=== PATIENT | female | born 1990 | race Caucasian/White ===

== ENCOUNTER → 2017-04-02 | Outpatient (REF) | payer BC | LOC: M LAB REF 13:20 | PROVIDERS: ATTEND Obstetrics & Gynecology | DX: Z11.3 Encounter for screening for infections with a predominantly sexual mode of transmission (principal) ==

== ENCOUNTER → 2018-01-09 | Outpatient (CLI) | payer BC ==
[2018-01-09 17:18] LABS: BASO % 0.4 % (0.0-1.0); EOS # 0.8 10^3/uL (0.0-0.50); EOS % 8.2 % (0.0-3.0); HEMATOCRIT 42.4 % (36.0-47.0); HEMOGLOBIN 14.5 g/dl (12.0-15.5); IMMATURE GRANULOCYTE % 0.3 % (0-3.0); LYMPH # 2.5 10^3/uL (1.5-6.5); LYMPH % 27.1 % (24.0-44.0); MEAN CORPUSCULAR HGB CONC 34.2 g/dl (32.0-36.5); MEAN CORPUSCULAR VOLUME 87.8 fl (80.0-96.0); MONO # 0.7 10^3/uL (0.0-0.8); MONO % 7.4 % (0.0-5.0); NEUTROPHILS # 5.2 10^3/uL (1.8-7.7); NEUTROPHILS % 56.6 % (36.0-66.0); PLATELET COUNT, AUTOMATED 357 10^3/uL (150-450); RED BLOOD COUNT 4.83 10^6/uL (4.00-5.40); RED CELL DISTRIBUTION WIDTH 11.8 % (11.5-14.5); WHITE BLOOD COUNT 9.1 10^3/uL (4.0-10.0)
[2018-01-09 18:24] LABS: ALBUMIN 4.2 GM/DL (3.2-5.2); ALKALINE PHOSPHATASE 83 U/L (45-117); ALT/SGPT 32 U/L (12-78); AMYLASE 48 U/L (25-115); ANION GAP 5 MEQ/L (8-16); AST/SGOT 17 U/L (7-37); BILIRUBIN,TOTAL 0.3 MG/DL (0.2-1.0); BLOOD UREA NITROGEN 12 MG/DL (7-18); CALCIUM LEVEL 9.4 MG/DL (8.5-10.1); CARBON DIOXIDE LEVEL 31 MEQ/L (21-32); CHLORIDE LEVEL 102 MEQ/L (98-107); CREATININE FOR GFR 0.92 MG/DL (0.55-1.30); FREE T4 1.07 NG/DL (0.76-1.46); GLOMERULAR FILTRATION RATE > 60.0 (>60); GLUCOSE, FASTING 82 MG/DL (70-100); LIPASE 74 U/L (73-393); POTASSIUM SERUM 4.4 MEQ/L (3.5-5.1); SODIUM LEVEL 138 MEQ/L (136-145); TOTAL PROTEIN 7.7 GM/DL (6.4-8.2)
[2018-01-10 15:44] LABS: CONTROL LINE HPYORI INT CTR LINE PRESENT; H PYLORI QUALITATIVE IgG NEGATIVE (NEGATIVE)
== END ==
LOC: M SMT 13:50
DX: R10.9 Unspecified abdominal pain (principal); R19.7 Diarrhea, unspecified

== ENCOUNTER 2018-01-10 19:30 | Emergency (ER) | payer BC ==
[2018-01-10] MEDS: PANTOPRAZOLE 40MG TAB (PROTONIX) PO (20:45)
[2018-01-10] MEDS: ONDANSETRON 4MG/2ML VIAL (J2405) IV (20:45)
[2018-01-10 21:10] LABS: BASO # 0.1 10^3/uL (0.0-0.2); BASO % 0.4 % (0.0-1.0); EOS # 0.5 10^3/uL (0.0-0.50); EOS % 4.1 % (0.0-3.0); HEMATOCRIT 39.4 % (36.0-47.0); HEMOGLOBIN 13.8 g/dl (12.0-15.5); IMMATURE GRANULOCYTE % 0.2 % (0-3.0); LYMPH # 1.7 10^3/uL (1.5-6.5); LYMPH % 13.4 % (24.0-44.0); MEAN CORPUSCULAR HEMOGLOBIN 30.2 pg (27.0-33.0); MEAN CORPUSCULAR VOLUME 86.2 fl (80.0-96.0); MONO % 7.4 % (0.0-5.0); NEUTROPHILS # 9.6 10^3/uL (1.8-7.7); NEUTROPHILS % 74.5 % (36.0-66.0); PLATELET COUNT, AUTOMATED 313 10^3/uL (150-450); RED BLOOD COUNT 4.57 10^6/uL (4.00-5.40); RED CELL DISTRIBUTION WIDTH 11.7 % (11.5-14.5); WHITE BLOOD COUNT 12.9 10^3/uL (4.0-10.0)
[2018-01-10] MEDS: MORPHINE 2 MG/ML 1ML SYRINGE (J2270) IV (21:13)
[2018-01-10 21:17] LABS: CALCIUM OXALATE CRYSTALS RFX SMALL; KETONE, URINE AUTO RFX 2+ mg/dL (NEGATIVE); LEUKOCYTE ESTERASE UR AUTO RFX NEGATIVE (NEGATIVE); MUCUS, URINE RFX SMALL (NEGATIVE); NITRITE, URINE AUTO RFX NEGATIVE (NEGATIVE); RBC, URINE AUTO RFX 4 /HPF (0-3); SPECIFIC GRAVITY UR AUTO RFX 1.027 (1.002-1.035); SQUAM EPITHELIAL CELL UR AURFX 5 /HPF (0-6); WBC, URINE AUTO RFX 3 /HPF (0-3)
[2018-01-10 21:34] LABS: ALBUMIN/GLOBULIN RATIO 1.18 (1.00-1.93); ALKALINE PHOSPHATASE 74 U/L (45-117); ALT/SGPT 35 U/L (12-78); ANION GAP 7 MEQ/L (8-16); AST/SGOT 18 U/L (7-37); BILIRUBIN,DIRECT 0.1 MG/DL (0.0-0.2); BILIRUBIN,TOTAL 0.4 MG/DL (0.2-1.0); BLOOD UREA NITROGEN 11 MG/DL (7-18); CALCIUM LEVEL 8.9 MG/DL (8.5-10.1); CARBON DIOXIDE LEVEL 28 MEQ/L (21-32); CHLORIDE LEVEL 104 MEQ/L (98-107); CREATININE FOR GFR 0.88 MG/DL (0.55-1.30); GLOMERULAR FILTRATION RATE > 60.0 (>60); GLUCOSE, FASTING 91 MG/DL (70-100); LIPASE 61 U/L (73-393); POTASSIUM SERUM 3.8 MEQ/L (3.5-5.1); SODIUM LEVEL 139 MEQ/L (136-145); TOTAL PROTEIN 7.4 GM/DL (6.4-8.2)
[2018-01-10] MEDS ORDERED: ISOVUE-370 76% 100ML VIAL (Q9967) As Ordered (21:39)
[2018-01-10] MEDS: GI COCKTAIL 50ML BTL(HYOSCYAMINE/MAALOX/LIDOCAINE VISCOUS)(1:3:1) PO (23:00)
== END 2018-01-10 23:57 | disposition home or self-care (01) ==
LOC: M ED 19:30
DX: K29.00 Acute gastritis without bleeding (principal); K21.9 Gastro-esophageal reflux disease without esophagitis; G43.909 Migraine, unspecified, not intractable, without status migrainosus; Z79.899 Other long term (current) drug therapy
CPT/HCPCS: J2405

== ENCOUNTER → 2018-01-10 | Outpatient (REF) | payer BC | LOC: M LAB REF 12:17 | DX: R10.9 Unspecified abdominal pain (principal); R19.7 Diarrhea, unspecified ==

== ENCOUNTER → 2018-04-03 | Outpatient (CLI) | payer BC ==
[2018-04-03 13:26] LABS: BASO # 0.1 10^3/uL (0.0-0.2); BASO % 0.5 % (0.0-1.0); EOS # 0.2 10^3/uL (0.0-0.50); EOS % 1.8 % (0.0-3.0); HEMATOCRIT 38.4 % (36.0-47.0); HEMOGLOBIN 13.2 g/dl (12.0-15.5); IMMATURE GRANULOCYTE % 0.3 % (0-3.0); LYMPH # 1.9 10^3/uL (1.5-6.5); LYMPH % 19.8 % (24.0-44.0); MEAN CORPUSCULAR HEMOGLOBIN 29.7 pg (27.0-33.0); MEAN CORPUSCULAR HGB CONC 34.4 g/dl (32.0-36.5); MEAN CORPUSCULAR VOLUME 86.5 fl (80.0-96.0); MONO # 0.9 10^3/uL (0.0-0.8); MONO % 8.9 % (0.0-5.0); NEUTROPHILS # 6.6 10^3/uL (1.8-7.7); NEUTROPHILS % 68.7 % (36.0-66.0); PLATELET COUNT, AUTOMATED 331 10^3/uL (150-450); RED BLOOD COUNT 4.44 10^6/uL (4.00-5.40); RED CELL DISTRIBUTION WIDTH 11.9 % (11.5-14.5); WHITE BLOOD COUNT 9.6 10^3/uL (4.0-10.0)
[2018-04-03 14:01] LABS: HBsAg Prenatal NEGATIVE (NEGATIVE); RUBELLA IgG QUALITATIVE IMMUNE (IMMUNE)
[2018-04-03 14:29] LABS: HEPATITIS C VIRUS ABY INDEX 0.1 INDEX (<0.8)
[2018-04-03 14:30] LABS: HIV 1&2 SCREEN CENTAUR NEGATIVE (NEGATIVE)
[2018-04-03 15:07] LABS: CHLAMYDIA DNA AMPLIFICATION NEGATIVE (NEGATIVE); GC DNA AMPLIFICATION NEGATIVE (NEGATIVE)
== END ==
LOC: M SMT 09:49
DX: Z36.89 Encounter for other specified antenatal screening (principal); Z3A.01 Less than 8 weeks gestation of pregnancy
CPT/HCPCS: 86762

== ENCOUNTER → 2018-04-03 | Outpatient (CLI) | payer BC ==
[2018-04-03 14:02] LABS: C REACTIVE PROTEIN QUANTITATIV 0.78 MG/DL (0.00-0.30); IMMUNOGLOBULIN G 982 MG/DL (681-1648)
[2018-04-06 00:07] LABS: ANCA-ATYPICAL <1:20 titer (Neg:<1:20); ANTI-SACCHAROMYCES CEREV. IgA <20.0 Units (0.0-24.9); ANTI-SACCHAROMYCES CEREV. IgG <20.0 Units (0.0-24.9); CYTOPLASMIC NEUTROP AB ANCA-C <1:20 titer (Neg:<1:20); ENDOMYSIAL ABY IgA Negative (Negative); PERINUCLEAR AB ANCA-P <1:20 titer (Neg:<1:20); TISSUE TRANSGLUTAMINASE IgA <2 U/mL (0-3); UNITSIGA FOR GLIADIN IGA 6 units (0-19); UNITSIGG FOR GLIADIN IGG 3 units (0-19)
== END ==
LOC: M SMT 09:54
DX: R19.7 Diarrhea, unspecified (principal); R10.33 Periumbilical pain; R14.1 Gas pain
CPT/HCPCS: 86255

== ENCOUNTER → 2018-04-24 | Outpatient (CLI) | payer BC ==
[2018-04-24 13:53] LABS: HCG, SERUM QUANTITATIVE 87 MIU/ML
== END ==
LOC: M SMT 08:19
DX: O02.1 Missed abortion (principal)
CPT/HCPCS: 84702

== ENCOUNTER → 2018-05-01 | Outpatient (CLI) | payer BC ==
[2018-05-02 12:17] LABS: HCG, SERUM QUANTITATIVE 19 MIU/ML
== END ==
LOC: M SMT 10:55
DX: O02.1 Missed abortion (principal)
CPT/HCPCS: 84702

== ENCOUNTER → 2018-05-08 | Outpatient (CLI) | payer BC ==
[2018-05-08 14:55] LABS: HCG, SERUM QUANTITATIVE 6 MIU/ML
== END ==
LOC: M SMT 10:57
DX: O02.1 Missed abortion (principal)
CPT/HCPCS: 84702

== ENCOUNTER → 2018-10-01 | Outpatient (CLI) | payer BC ==
[~2018-10-01] MED LIST: CARA1TAB6 PO; OMEP40CA2 PO; PERCOCET PO
[2018-10-01 13:08] LABS: FREE T4 0.94 NG/DL (0.76-1.46); THYROID STIMULATING HORMONE 1.53 uIU/ML (0.358-3.740)
[2018-10-01 13:10] LABS: LUTEINIZING HORMONE 4.7 mIU/mL; PROLACTIN 8.5 NG/ML
[2018-10-01 13:11] LABS: ESTRADIOL 52.1 PG/ML; FOLLICLE STIMULATING HORMONE 6.5 mIU/mL
[2018-10-05 11:38] LABS: 17 HYDROXY PROGESTERONE 31 ng/dL (.); DEHYDROEPIANDROSTERONE SULFATE 205.3 ug/dL (84.8-378.0); TESTOSTERONE FREE (DIRECT) 1.6 pg/mL (0.0-4.2)
== END ==
LOC: M LAB 12:14
PROVIDERS: ATTEND Obstetrics & Gynecology
DX: N92.0 Excessive and frequent menstruation with regular cycle (principal)

== ENCOUNTER → 2018-10-19 | Outpatient (CLI) | payer BC | LOC: M LAB 09:11 | PROVIDERS: ATTEND Obstetrics & Gynecology | DX: N92.0 Excessive and frequent menstruation with regular cycle (principal) ==

== ENCOUNTER → 2018-10-28 | Outpatient (CLI) | payer BC ==
--- NOTE | 2018-10-29 04:14 | REP ---
Clinical: Abnormal menstruation. Technique: Transabdominal pelvic ultrasound followed by transvaginal examination for better evaluation of the endometrium and adnexa with color Doppler evaluation of the ovaries. Findings: Bladder is unremarkable and measures 8.6 x 5.6 x 4.7 cm . Normal anteverted uterus measures 9.9 x 4.4 x 5.5 cm . The endometrial complex measures 19.4 mm thickness. No discrete uterine or endometrial abnormalities are appreciated. Bilateral ovaries are normal in appearance and vascularity without evidence for torsion. Right ovary measures 3.3 x 2.2 x 3.0 cm ; R I = 0.41 . Left ovary measures 4.2 x 2.3 x 2.1 cm ; R I = 0.54 . No pelvic free fluid or adnexal mass lesion appreciated . Impression: 1. Mildly thickened endometrial complex possibly related to menstrual cycle. 2. Otherwise normal pelvic ultrasound. Electronically Signed by Marky Rey MD 10/29/2018 04:06 A
== END ==
LOC: M RAD 16:08
PROVIDERS: ATTEND Obstetrics & Gynecology
DX: N92.0 Excessive and frequent menstruation with regular cycle (principal)

== ENCOUNTER → 2018-11-13 | Outpatient (REF) | payer BC ==
[2018-11-16 16:40] LABS: HPV HYBRID CAPTURE II Negative (Negative)
== END ==
LOC: M LAB REF 13:38
PROVIDERS: ATTEND Obstetrics & Gynecology
DX: Z12.4 Encounter for screening for malignant neoplasm of cervix (principal)
CPT/HCPCS: 87624; G0123

== ENCOUNTER → 2018-11-21 | Outpatient (CLI) | payer BC | LOC: M LAB 12:24 | PROVIDERS: ATTEND Obstetrics & Gynecology | DX: N92.0 Excessive and frequent menstruation with regular cycle (principal) ==

== ENCOUNTER → 2019-04-01 | Outpatient (CLI) | payer BC ==
[2019-04-01 07:27] LABS: HCG, SERUM QUANTITATIVE < 1.0 MIU/ML
--- NOTE | 2019-04-01 08:53 | REP ---
Transvaginal pelvic sonography: History: Ovarian follicle study. Sonographic findings: Transvaginal pelvic sonography demonstrates uterine dimensions to be normal at 8.9 x 3.4 x 4.3 cm. Endometrial stripe is 0.3 cm thick. No focal uterine mass is seen. No free fluid is noted. The overall dimensions of the right ovary are 2.8 x 2.3 x 2.1 cm. There is a follicle in the right ovary measuring 1.0 x 0.8 cm. In addition there are 23 small follicles in the right ovary ranging in size from 0.3-0.8 cm. The left ovary has dimensions of 3.6 x 2.0 x 1.7 cm. There are no follicles larger than a centimeter in the left ovary. The left ovary contains 32 follicles ranging in size from 0.2-0.8 cm. Impression: No abnormality noted. Ovarian follicles as above. Electronically Signed by Timothy Balderas MD 04/01/2019 08:45 A
[2019-04-01 09:35] LABS: ESTRADIOL 38.4 PG/ML; LUTEINIZING HORMONE 5.2 mIU/mL; PROGESTERONE 0.47 NG/ML
[2019-04-01 09:36] LABS: FOLLICLE STIMULATING HORMONE 5.7 mIU/mL
== END ==
LOC: M LAB 06:27
PROVIDERS: ATTEND Obstetrics & Gynecology Reproductive Endocrinology
DX: E28.9 Ovarian dysfunction, unspecified (principal)

== ENCOUNTER → 2019-05-02 | Outpatient (CLI) | payer BC ==
--- NOTE | 2019-05-02 08:19 | REP ---
Transvaginal pelvic sonography: History: Ovarian dysfunction. Follicle study. Findings: Uterine dimensions are 8.9 x 3.8 x 5.3 cm. Endometrial stripe is 0.6 cm thick. No focal uterine mass is seen. No free fluid is noted. The overall dimensions of the right ovary today are 3.2 x 2.6 x 2.5 cm. There are two follicles in the right ovary greater than a centimeter measured as follows: 1.1 by 0.7, and 1.1 x 0.7 centimeters. In addition there approximate 50 follicles in the right ovary ranging in size from 0.2-0.9 cm. The overall dimensions of the left ovary today are 3.5 x 1.9 x 2.4 cm. There is a 1.2 x 0.6 cm follicle and there are 33 follicles in the left ovary ranging in size from 0.2-0.9 cm. Impression: Ovarian follicle study as above. Electronically Signed by Timothy Balderas MD 05/02/2019 08:11 A
[2019-05-02 08:42] LABS: HCG, SERUM QUANTITATIVE < 1.0 MIU/ML
[2019-05-02 10:58] LABS: PROGESTERONE 0.31 NG/ML
[2019-05-02 10:59] LABS: ESTRADIOL 39.5 PG/ML; FOLLICLE STIMULATING HORMONE 6.6 mIU/mL; LUTEINIZING HORMONE 6.6 mIU/mL
== END ==
LOC: M LAB 06:45
PROVIDERS: ATTEND Obstetrics & Gynecology Reproductive Endocrinology
DX: E28.9 Ovarian dysfunction, unspecified (principal)

== ENCOUNTER → 2019-05-07 | Outpatient (CLI) | payer BC ==
[2019-05-07 09:57] LABS: ESTRADIOL 44.7 PG/ML; LUTEINIZING HORMONE 8.1 mIU/mL; PROGESTERONE 0.21 NG/ML
--- NOTE | 2019-05-07 10:34 | REP ---
TRANSVAGINAL PELVIC ULTRASOUND FOLLICLE STUDY: Transvaginal pelvic ultrasound performed. Uterus measures 8.5 x 3.7 x 3.6 cm. Endometrial thickness is 6 mm. Right ovary measures 3.5 x 2.5 x 2.6 cm. Five follicles have a maximum diameter over 10 mm. The largest measure 12 x 11 and 15 x 10 mm. Multiple other subcentimeter follicles are seen. Left ovary is 3.7 x 2.3 x 2.8 cm. There are four follicles measuring 10 mm maximally or greater. The largest measure 14 x 5 and 12 x 9 mm. Multiple other subcentimeter follicles are seen. Electronically Signed by Jaya Jerez MD 05/08/2019 04:40 P
== END ==
LOC: M RAD 08:14
PROVIDERS: ATTEND Obstetrics & Gynecology Reproductive Endocrinology
DX: E28.9 Ovarian dysfunction, unspecified (principal)

== ENCOUNTER → 2019-05-09 | Outpatient (CLI) | payer BC ==
--- NOTE | 2019-05-09 08:51 | REP ---
Obstetric ultrasound for follicle assessment: Right ovary: There are six follicles greater than 10 mm as follows: 10 x 6 mm 12 x 7 mm 15 x 10 ml 12 x 5 mm 10 x 10 mm 10 x 6 mm. In addition there are approximately 12 follicles measuring 3-9 mm. Right ovary measures 3.9 x 3.1 x 2.4 cm and is normal size. Left ovary. There are two follicles greater than 10 mm as follows: 10 x 7 mm 14 x 8 mm. Additionally, there are approximately 16 follicles measuring 4-8 mm. The left ovary measures 3.9 x 2.2 x 2.6 cm and is normal size. The uterus is anteverted and slightly retroflexed and normal size measuring 8.3 x 2.9 x 4.7 cm. The endometrial stripe measures 5.1 ml and is homogeneous. Electronically Signed by Jaya Kiran MD 05/09/2019 08:43 A
[2019-05-09 10:10] LABS: ESTRADIOL 54.4 PG/ML; LUTEINIZING HORMONE 8.4 mIU/mL; PROGESTERONE 0.21 NG/ML
== END ==
LOC: M RAD 08:04
PROVIDERS: ATTEND Obstetrics & Gynecology Reproductive Endocrinology
DX: E28.9 Ovarian dysfunction, unspecified (principal)

== ENCOUNTER → 2019-05-12 | Outpatient (CLI) | payer BC ==
--- NOTE | 2019-05-12 08:49 | REP ---
Pelvic sonography: Transvaginal follicle study. History: Fertility study. Findings: Uterine dimensions are 9.5 x 3.6 x 3.3 cm per endometrial stripe is 0.7-0.9 cm. There is fluid in the cervical canal. No focal uterine mass is seen. No cul-de-sac fluid is seen. Overall dimensions of the right ovary today are 3.6 x 2.3 x 2.7 cm. There are three follicles over a centimeter in the right ovary measured as follows: 1.1 x 0.6, 1.6 x 1.3, and 1.5 x 1.3 cm. In addition, the right ovary contains 13 follicles ranging in size from 0.4-0.9 cm. The overall dimensions of the left ovary are 3.4 x 2.7 x 3.1 cm. There are three follicles greater than a centimeter in the left ovary measured as follows: 1.1 x 0.4, 1.1 x 0.6, and 1.7 x 1.5 cm. In addition, the left ovary contains 12 follicles ranging in size from 0.4-0.8 meters. Impression: Ovarian follicle study as above. Electronically Signed by Timothy Balderas MD 05/12/2019 08:40 A
[2019-05-12 09:35] LABS: ESTRADIOL 391.7 PG/ML; LUTEINIZING HORMONE 6.9 mIU/mL; PROGESTERONE 0.23 NG/ML
== END ==
LOC: M RAD 06:46
PROVIDERS: ATTEND Obstetrics & Gynecology Reproductive Endocrinology
DX: E28.9 Ovarian dysfunction, unspecified (principal)

== ENCOUNTER → 2019-05-20 | Outpatient (CLI) | payer BC ==
[2019-05-20 07:35] LABS: THYROID STIMULATING HORMONE 1.56 uIU/ML (0.358-3.740)
[2019-05-20 12:06] LABS: PROGESTERONE 17.2 NG/ML
== END ==
LOC: M LAB 06:38
PROVIDERS: ATTEND Obstetrics & Gynecology Reproductive Endocrinology
DX: E28.9 Ovarian dysfunction, unspecified (principal)

== ENCOUNTER → 2019-05-27 | Outpatient (CLI) | payer BC ==
[2019-05-27 07:44] LABS: HCG, SERUM QUANTITATIVE < 1.0 MIU/ML
[2019-05-27 11:27] LABS: PROGESTERONE 2.64 NG/ML
== END ==
LOC: M LAB 06:45
PROVIDERS: ATTEND Obstetrics & Gynecology Reproductive Endocrinology
DX: E28.9 Ovarian dysfunction, unspecified (principal)

== ENCOUNTER → 2019-05-30 | Outpatient (CLI) | payer BC ==
[~2019-05-30] MED LIST changes: -OMEP40CA2 PO; +OMEP40CA97 PO
[2019-05-30 07:48] LABS: HCG, SERUM QUANTITATIVE < 1.0 MIU/ML
[2019-05-30 07:50] LABS: ESTRADIOL 40.1 PG/ML; LUTEINIZING HORMONE 6.7 mIU/mL; PROGESTERONE 0.35 NG/ML
--- NOTE | 2019-05-30 09:12 | REP ---
Transvaginal pelvic sonography: History: Ovarian dysfunction, fertility study. Assess follicles. Findings: Uterine dimensions are 8.9 x 3.8 x 4.0 cm. Endometrial stripe is 1.0 cm thick. No focal uterine mass or free fluid is seen. The right ovary dimensions overall are 3.9 x 3.0 x 2.6 cm. There are three follicles measuring greater than a centimeter in the right ovary today measured as follows: 1.0 x 0.9, 1.2 x 0.8, and 1.2 x 0.6 cm. In addition, there are 20 follicles in the right ovary ranging in size from 0.4-0.9 cm. The left ovaries overall dimensions are 3.6 x 1.7 x 1.8 cm. There are no follicles greater than a centimeter in the left ovary today. There are 14 follicles in the left ovary ranging in size from 0.7-0.4 cm. Impression: Ovarian follicle study as above. Electronically Signed by Timothy Balderas MD 05/30/2019 09:03 A
== END ==
LOC: M RAD 06:42
PROVIDERS: ATTEND Obstetrics & Gynecology Reproductive Endocrinology
DX: E28.9 Ovarian dysfunction, unspecified (principal)

== ENCOUNTER → 2019-06-04 | Outpatient (CLI) | payer BC ==
--- NOTE | 2019-06-04 08:57 | REP ---
Pelvic sonography: Transvaginal imaging. History: Ovarian dysfunction. Follicle study. Findings: Overall dimensions of the uterus are 9.0 x 3.8 x 4.7 cm. Endometrial stripe is 0.7 cm thick. No focal uterine lesion. No free fluid is seen. The right ovary has dimensions of 3.2 x 2.5 x 3.1 cm. There are four follicles measuring over a centimeter in the right ovary as follows: 1.2 x 1.0, 1.3 x 0.6, 1.0 x 0.5, and 1.2 x 0.8 cm. In addition, the right ovary contains 10 follicles ranging in size between 0.6 and 0.9 cm. The left ovary's dimensions are 3.6 x 2.2 x 2.7 cm. Left ovary contains three follicles measuring over a centimeter as follows: 1.2 x 0.4, 1.1 x 0.7, and 1.0 x 1.2 cm. In addition, the left ovary contains 12 follicles ranging in size between 0.3 and 0.9 cm. Impression: Ovarian follicle study as above. Electronically Signed by Timothy Balderas MD 06/04/2019 08:48 A
[2019-06-04 10:22] LABS: LUTEINIZING HORMONE 4.8 mIU/mL; PROGESTERONE 0.21 NG/ML
== END ==
LOC: M RAD 07:55
PROVIDERS: ATTEND Obstetrics & Gynecology Reproductive Endocrinology
DX: N97.9 Female infertility, unspecified (principal)

== ENCOUNTER → 2019-06-06 | Outpatient (CLI) | payer BC ==
--- NOTE | 2019-06-06 08:45 | REP ---
Transvaginal pelvic sonography: History: Ovarian dysfunction, infertility study. Follicle exam. Findings: Uterine dimensions are 9.5 x 3.7 x 4.9 cm. Endometrial stripe 0.7 cm thick. There is a trace of fluid in the endocervical canal. No focal uterine mass is seen. No free fluid is seen. Right ovary dimensions are 3.7 x 2.9 x 2.3 cm. There are six follicles in the right ovary measuring over a centimeter as follows: 1.3 x 1.1, 1.9 x 0.7, 1.4 x 0.8, 1.1 x 0.9, 1.6 x 0.8, and 1.0 x 0.6 cm. In addition, the right ovary contains 18 follicles ranging in size from 0.3-0.9 cm. The left ovary measures 4.1 x 2.2 x 2.8 cm in overall dimension. There are five follicles in the right ovary measuring greater than a centimeter as follows: 1.2 x 0.4, 1.5 x 1.1, 1.3 x 1.1, 1.0 x 0.6, and 1.0 x 0.5 cm. In addition, there are 10 follicles in the left ovary ranging in size between 0.4 and 0.9 cm. Impression: Ovarian follicle study as above. Electronically Signed by Timothy Balderas MD 06/06/2019 08:36 A
[2019-06-06 10:25] LABS: ESTRADIOL 149.7 PG/ML; LUTEINIZING HORMONE 3.8 mIU/mL; PROGESTERONE 0.21 NG/ML
== END ==
LOC: M RAD 06:54
PROVIDERS: ATTEND Obstetrics & Gynecology Reproductive Endocrinology
DX: E28.9 Ovarian dysfunction, unspecified (principal)

== ENCOUNTER → 2019-06-09 | Outpatient (CLI) | payer BC ==
[2019-06-09 10:05] LABS: ESTRADIOL 490.7 PG/ML; LUTEINIZING HORMONE 15.3 mIU/mL; PROGESTERONE 0.37 NG/ML
--- NOTE | 2019-06-09 10:05 | REP ---
TRANSVAGINAL PELVIC ULTRASOUND, FOLLICLE STUDY: Transvaginal pelvic ultrasound was performed. The uterus measures 9.5 x 4.0 x 5.1 cm. Endometrial thickness is 12 mm. There is a small amount of fluid seen in the cervical canal. Right ovary measures 3.5 x 3.3 x 3.0 cm. There are 8 follicles measuring 10 mm or greater. The largest measures 15 x 11 mm. The left ovary measures 4.5 x 2.5 x 3.9 cm. There are five dominant follicles measuring 10 mm or greater. The largest measures 21 x 17 and 20 x 18 mm. There are approximately 6 other subcentimeter follicles noted. Electronically Signed by Jaya Jerez MD 06/10/2019 05:28 P
== END ==
LOC: M RAD 06:42
PROVIDERS: ATTEND Obstetrics & Gynecology Reproductive Endocrinology
DX: E28.9 Ovarian dysfunction, unspecified (principal)

== ENCOUNTER → 2019-06-17 | Outpatient (CLI) | payer BC ==
[2019-06-17 10:06] LABS: ESTRADIOL 199.1 PG/ML; PROGESTERONE 41.73 NG/ML; THYROID STIMULATING HORMONE 1.79 uIU/ML (0.358-3.740)
== END ==
LOC: M LAB 08:08
PROVIDERS: ATTEND Obstetrics & Gynecology Reproductive Endocrinology
DX: E28.9 Ovarian dysfunction, unspecified (principal)

== ENCOUNTER → 2019-06-24 | Outpatient (CLI) | payer BC ==
[2019-06-24 07:51] LABS: HCG, SERUM QUANTITATIVE < 1.0 MIU/ML
[2019-06-24 11:26] LABS: PROGESTERONE 7.34 NG/ML
== END ==
LOC: M LAB 06:48
PROVIDERS: ATTEND Obstetrics & Gynecology Reproductive Endocrinology
DX: Z32.00 Encounter for pregnancy test, result unknown (principal)

== ENCOUNTER → 2019-10-10 | Outpatient (REF) | payer BC ==
[2019-10-10 13:01] LABS: INFLUENZA A AMPLIFICATION POSITIVE (NEGATIVE); INFLUENZA B AMPLIFICATION NEGATIVE (NEGATIVE)
== END ==
LOC: M LAB REF 12:18
PROVIDERS: ATTEND Physician Assistant Medical
DX: J11.1 Influenza due to unidentified influenza virus with other respiratory manifestations (principal)

== ENCOUNTER → 2019-12-11 | Outpatient (REF) | payer BC ==
[2019-12-11 16:58] LABS: HEMATOCRIT 39.8 % (36.0-47.0); HEMOGLOBIN 13.8 g/dl (12.0-15.5); MEAN CORPUSCULAR HEMOGLOBIN 30.1 pg (27.0-33.0); MEAN CORPUSCULAR HGB CONC 34.7 g/dl (32.0-36.5); MEAN CORPUSCULAR VOLUME 86.7 fl (80.0-96.0); PLATELET COUNT, AUTOMATED 345 10^3/uL (150-450); RED BLOOD COUNT 4.59 10^6/uL (4.00-5.40); WHITE BLOOD COUNT 10.8 10^3/uL (4.0-10.0)
[2019-12-11 20:59] LABS: CHLAMYDIA DNA AMPLIFICATION NEGATIVE (NEGATIVE); GC DNA AMPLIFICATION NEGATIVE (NEGATIVE)
[2019-12-12 11:44] LABS: HEPATITIS B SURFACE ANTIGEN NEGATIVE (NEGATIVE); HEPATITIS C VIRUS ABY INDEX 0.1 INDEX (<0.8); HIV 1&2 SCREEN CENTAUR NEGATIVE (NEGATIVE); RUBELLA IgG QUALITATIVE IMMUNE (IMMUNE)
== END ==
LOC: M PLALAB 14:42
PROVIDERS: ATTEND Advanced Practice Midwife
DX: Z34.81 Encounter for supervision of other normal pregnancy, first trimester (principal)

== ENCOUNTER → 2019-12-24 | Outpatient (CLI) | payer BC | LOC: M PLALAB 11:37 | PROVIDERS: ATTEND Advanced Practice Midwife | DX: Z34.81 Encounter for supervision of other normal pregnancy, first trimester (principal); Z36.89 Encounter for other specified antenatal screening ==

== ENCOUNTER → 2020-03-01 | Outpatient (CLI) | payer BC ==
--- NOTE | 2020-03-01 23:08 | REP ---
REASON: anatomy. Multiple ultrasonographic images of the gravid uterus show a single living intrauterine gestation in the cephalic presentation. Doppler interrogation of the heart shows a heart rate of 144 beats per minute. The placenta is posterior and not low lying. The subjective amniotic fluid volume is within normal limits. The cervix measures 5.2 cm in length and is closed. Evaluation of the maternal adnexal spaces showed no abnormalities. CHART: BPD 4.5 cm = 19 weeks 4 days HC 16.8 cm = 19 weeks 3 days AC 14.8 cm = 20 weeks 1 day FL 3.4 cm = 20 weeks 5 days The estimated weight is 342 grams, which is at the 45th percentile for a 20-week 2-day gestational age. anatomical structures seen as unremarkable are as follows: Thalami, cavum septum pellucidum, cerebellum, cisterna magna, cerebral ventricles, upper lip, four-chamber heart, ventricular outflow tracts, stomach, cord insertion, three-vessel umbilical cord, kidneys, urinary bladder, spine, and upper and lower extremities. IMPRESSION: Single living intrauterine gestation, as described above, with an estimated gestational age of 20 weeks 0 days via composite criteria and an estimated date of delivery of 07/19/2020 by today's exam. No anomalies were detected. Electronically Signed by Fermín Williamson DO 03/02/2020 11:32 A
== END ==
LOC: M RAD 11:17
PROVIDERS: ATTEND Obstetrics & Gynecology
DX: Z34.82 Encounter for supervision of other normal pregnancy, second trimester (principal); Z3A.20 20 weeks gestation of pregnancy

== ENCOUNTER → 2020-04-28 | Outpatient (CLI) | payer BC ==
[2020-04-28 10:57] LABS: BASO % 0.3 % (0.0-1.0); EOS # 0.1 10^3/uL (0.0-0.5); EOS % 1.1 % (0.0-3.0); HEMATOCRIT 35.5 % (36.0-47.0); HEMOGLOBIN 11.9 g/dl (12.0-15.5); LYMPH # 1.7 10^3/uL (1.5-5.0); LYMPH % 14.5 % (24.0-44.0); MEAN CORPUSCULAR HEMOGLOBIN 30.7 pg (27.0-33.0); MEAN CORPUSCULAR HGB CONC 33.5 g/dl (32.0-36.5); MEAN CORPUSCULAR VOLUME 91.5 fl (80.0-96.0); MONO # 0.8 10^3/uL (0.0-0.8); MONO % 6.5 % (0.0-5.0); NEUTROPHILS # 8.9 10^3/uL (1.5-8.5); NEUTROPHILS % 76.7 % (36.0-66.0); PLATELET COUNT, AUTOMATED 291 10^3/uL (150-450); RED BLOOD COUNT 3.88 10^6/uL (4.00-5.40); WHITE BLOOD COUNT 11.6 10^3/uL (4.0-10.0)
== END ==
LOC: M LAB 08:09
PROVIDERS: ATTEND Advanced Practice Midwife
DX: Z34.82 Encounter for supervision of other normal pregnancy, second trimester (principal); Z3A.00 Weeks of gestation of pregnancy not specified

== ENCOUNTER → 2020-06-23 | Outpatient (REF) | payer BC | LOC: M SFHCWAGY 17:18 | PROVIDERS: ATTEND Advanced Practice Midwife | DX: Z34.93 Encounter for supervision of normal pregnancy, unspecified, third trimester (principal); Z3A.36 36 weeks gestation of pregnancy ==

== ENCOUNTER 2020-07-20 21:21 | Inpatient (IN) | payer BC ==
[~2020-07-20] VITALS: Ht 167.6 cm; Wt 107.3 kg
[2020-07-20 21:47] VITALS: BP 127/67
[2020-07-20] MEDS ORDERED: PENICILLIN G POTASSIUM IV 5 MU in D5W MINI-BAG PLUS 100 ML IV STA (22:15)
[2020-07-20] MEDS ORDERED: PRENTAB9 PO (22:24)
[2020-07-20] MEDS ORDERED: ASPI81CH33 PO (22:24)
--- NOTE | 2020-07-20 22:30 | HPEPDOC ---
Obstetrical History & Physical General Date of Admission Jul 20, 2020 at 22:08 History of Present Illness 29 yo female at 40 3/7 weeks by LMP c/w 8 week ultrasound (EDC=07/17/2020) presents with sudden loss of fluid per vagina at 7:15 pm on the day of admission. She continued to leak. She soaked a pad. She has mild contractions. blood tinged discharge. Chief Complaint: Rupture of membranes Information Provided By: Patient Age: 29 : 2 Term: 0 Pre-term: 0 Abortions: 1 Livin Care Care: Good Care Dating Final EDC: Jul 17, 2020 Final EDC by: LMP, 1st trimester ([place]) Past Medical History Past Obstetrical History : Past Obstetrical History: Primgravida Past Medical History Medical History Surgical history: D+C Hysteroscopy Medical hx: migraines Family History Significant Family History: No pertinent family hx Social History Marital Status: Family situation: Spouse/partner home Psychosocial History: No pertinent psych hx * Smoker: non-smoker Allergies Coded Allergies: No Known Drug Allergies (Verified Allergy, Unknown, 07/20/20) Medications Scheduled Omeprazole (Omeprazole) 40 Mg Cap, 40 MG PO DAILY Sucralfate (Carafate) 1 Gm Tab, 1 GM PO ACHS 4 times per day on an empty stomach 1 hour before meals and at bedtime Scheduled PRN Oxycodone/Acetaminophen (Oxycodone-Acetaminophen 5-325) 1 Tab Tab, 1-2 TAB PO Q4-6HP PRN for PAIN Physical Examination Physical Examination GENERAL: Alert and oriented times three. BREAST: . ABDOMEN: Gravid and non-tender to touch. FETUS: Is vertex (VTX) by sterile vaginal examination (SVE), fetus is vertex (VTX) by Esvin. HEART RATE: Regular rate and rhythm. LUNGS: Clear to auscultation (CTA). EXTREMITIES: No edema. No clonus. Deep tendon reflexes (DTRs) + . Laboratory Data 24H LABS Laboratory Tests 2 07/20/20 22:21: Serology Scanned Report Hepatitis B Testing Pertinent Laboratoy Data RBC Antibody Screen: Negative HIV: Negative Hepatitis B: Negative Hepatitis C: Negative Rapid Plasma Reagin: Nonreactive Rubella: Immune Group B Streptococcus: Positive Vaginal Examination Dilation: 1cm Effacement: 50% Station: -2 Cervical Position: Posterior Presentation: Cephalic presentation (grossly ruptured, light meconium) Assessment Variability: Moderate Accelerations: Positive Decelerations: None Tocometer Contractions: Yes Frequency: irregular Duration: less than 60 seconds Strength: palpated as mild Assessment/Plan Assessment [Pt is a 29-year-old (G)2 para (P)0010 at 40+3 weeks by LMP c/w 8-week ultrasound Presents with spontaneous rupture of membranes, early labor. Plan Admit and orient. Field Representative/Health Education and consent. Group B Streptococcus (GBS) [negative]. Labs and intravenous (IV) per unit protocol.. Anticipate normal spontaneous delivery () C-S as appropriate. SCOTT MARROQUIN MD Jul 20, 2020 22:30
[2020-07-20 22:50] LABS: HEMATOCRIT 38.3 % (36.0-47.0); MEAN CORPUSCULAR HEMOGLOBIN 29.7 pg (27.0-33.0); MEAN CORPUSCULAR HGB CONC 33.9 g/dl (32.0-36.5); MEAN CORPUSCULAR VOLUME 87.6 fl (80.0-96.0); PLATELET COUNT, AUTOMATED 260 10^3/uL (150-450); RED BLOOD COUNT 4.37 10^6/uL (4.00-5.40); WHITE BLOOD COUNT 10.7 10^3/uL (4.0-10.0)
[2020-07-21] VITALS (59 sets, daily range): BP systolic 90–135; BP diastolic 51–88
[2020-07-21] MEDS ORDERED: OXYTOCIN DRIP 30 UNITS in IV 1 EA IV SCH ×2
[2020-07-21] MEDS: LR 1,000 ML IV SCH ×2 (03:13→06:48)
[2020-07-21] MEDS: PENICILLIN G POTASSIUM IV 2.5 MU in IV 1 EA IV SCH ×6 (03:13→23:57)
[2020-07-21] MEDS ORDERED: PROMETHAZINE INJ 25 MG/ML VIAL (J2550) IV ONE (06:00)
[2020-07-21] MEDS ORDERED: BUTORPHANOL 2 MG/ML INJ (J0595) IV ONE (06:00)
[2020-07-21] MEDS ORDERED: FENTANYL 2MCG/ML ROPIVACAINE 0.2% IN 0.9% NACL 100ML IVBAG As Ordered ONE (14:44)
[2020-07-21] MEDS ORDERED: EPIDURAL/PCA KEYS XX PRN (18:00)
[2020-07-21] MEDS ORDERED: ePHEDrine SULFATE 25 MG/5 ML(5MG/ML) SYRINGE IV PRN (18:00)
[2020-07-21] MEDS ORDERED: diphenhydrAMINE 50MG/ML VIAL (J1200) IV PRN (18:00)
[2020-07-21] MEDS ORDERED: LACTATED RINGER'S 1000 ML IV PRN (18:00)
[2020-07-21] MEDS ORDERED: ONDANSETRON 4MG/2ML VIAL IV PRN (18:00)
[2020-07-21] MEDS ORDERED: EPIDURAL COMMENT XX SCH (18:00)
[2020-07-21] MEDS ORDERED: REFRIGERATOR IV KEYS XX PRN (18:00)
[2020-07-21] MEDS ORDERED: NALOXONE INJ 0.4MG/1ML VIAL (J2310 PER 1MG) IV PRN (18:00)
[2020-07-21] MEDS: FENTANYL/ROPIVACAINE/NACL BAG 100 ML EPIDURAL SCH (23:49)
[2020-07-22] VITALS (57 sets, daily range): BP systolic 98–142; BP diastolic 53–86
[2020-07-22] MEDS ORDERED: fentaNYL 100 MCG/2 ML INJECTION (J3010) As Ordered ONE (01:34)
[2020-07-22] MEDS: PENICILLIN G POTASSIUM IV 2.5 MU in IV 1 EA IV SCH ×2 (03:26→07:17)
[2020-07-22] MEDS: LR 1,000 ML IV SCH ×2 (07:17→08:21)
[2020-07-22] MEDS: FENTANYL/ROPIVACAINE/NACL BAG 100 ML EPIDURAL SCH (07:41)
[2020-07-22] MEDS ORDERED: ceFAZolin 2 GM/D5W 50 ML IV BAG (J0690 PER 500MG) As Ordered ONE (09:39)
[2020-07-22] MEDS ORDERED: BICITRA 30ML SOLN UDC As Ordered ONE (09:39)
[2020-07-22] MEDS ORDERED: AZITHROMYCIN INJ 500MG VIAL (J0456 PER 500MG) As Ordered ONE (09:40)
[2020-07-22] MEDS ORDERED: AZITHROMYCIN INJ 500 MG, VIAL MATE ADAPTER 1 EACH in D5W 250 ML IV ONE (09:45)
[2020-07-22] MEDS ORDERED: BICITRA 30ML SOLN UDC PO ONE (09:45)
[2020-07-22] MEDS ORDERED: ceFAZolin SOD 2 GM in IV 1 EA IV ONE (09:45)
[2020-07-22] MEDS ORDERED: KETOROLAC 60MG 2ML VIAL As Ordered ONE (09:49)
[2020-07-22] MEDS ORDERED: ONDANSETRON 4MG/2ML VIAL As Ordered ONE (09:49)
[2020-07-22] MEDS ORDERED: MORPHINE PRES-FREE INJ 10 MG/10 ML VIAL (J2274) As Ordered ONE (09:49)
[2020-07-22] MEDS ORDERED: ePHEDrine SULFATE 25 MG/5 ML(5MG/ML) SYRINGE As Ordered ONE (09:50)
[2020-07-22] MEDS ORDERED: OXYTOCIN INJ 10 UNITS/ML VIAL (J2590) As Ordered ONE (09:50)
[2020-07-22] MEDS ORDERED: OXYTOCIN 30 UNITS IN 0.9% NaCl 500ML IV BAG (J2590) As Ordered ONE ×2 (09:50→11:58)
[2020-07-22] MEDS ORDERED: dexameTHASONE 4 MG/ML 1ML VIAL (J1100 PER 1MG) As Ordered ONE (09:50)
[2020-07-22] MEDS ORDERED: PHENYLephrine HCL 500 MCG/5 ML (100MCG/ML) SYRINGE (J2370) As Ordered ONE (09:50)
--- NOTE | 2020-07-22 10:06 | IPNPDOC ---
Obstetrical Progress Note Date of Service Jul 22, 2020 Subjective Patient comfortable with epidural. cx unchanged at 7-8cm, now with swelling of cervix. Objective Vital Signs Date Time Temp Pulse Resp B/P (MAP) Pulse Ox O2 Delivery O2 Flow Rate FiO2 07/22/20 09:01 98.8 69 119/73 (88) 07/22/20 08:01 20 Assessment Variability: Moderate Accelerations: Positive Heart Rate Tracing: Category I Tocometer Contractions: Yes Frequency: regular Sterile Vaginal Examination Dilation: 8 cm Effacement (%): 70% Cervical Position: Anterior Postion/Presentation: Cephalic presentation Assessment and Plan Status: Reassuring Group B Streptococcus: Positive Anticipate: Section Additional Comments Indication for c/s arrest of dilation ERLIN PATTERSON MD. Jul 22, 2020 10:06
[2020-07-22] MEDS ORDERED: OXYTOCIN DRIP 30 UNITS in IV 1 EA IV SCH (11:18)
[2020-07-22] MEDS ORDERED: RHOGAM 300 MCG (1500 IU) INJ (J2790) IM SCH (11:30)
[2020-07-22] MEDS ORDERED: MOM 30ML SUSPENSION UDC PO PRN (11:30)
[2020-07-22] MEDS ORDERED: ONDANSETRON 4MG/2ML VIAL IV PRN ×3 (11:30→12:00)
[2020-07-22] MEDS ORDERED: MEASLES,MUMPS,RUBELLA VACCINE INJ (MMR-II) (90707) SC SCH (11:30)
[2020-07-22] MEDS ORDERED: PERCOCET 5MG/325MG TAB PO PRN ×3 (11:30→12:00)
--- NOTE | 2020-07-22 11:32 | ROOPDOC ---
[facility] Report Of Operation Report of Operation DATE OF PROCEDURE: 07/22/20 SURGEON: Yary Camarillo M.D. MASTER CARPENTER: Mayelin Kelsey, PGY3 PROCEDURE: Primary section PREOPERATIVE DIAGNOSIS: 1.Arrest of dilation POSTOPERATIVE DIAGNOSIS: 1.Arrest of dilation ANESTHESIA: Epidural ESTIMATED BLOOD LOSS: 500 mL URINE OUTPUT: 175 mL INTRAVENOUS FLUIDS:1600 mL of lactated Ringer's solution PREOPERATIVE ANTIBIOTICS:. 2 g of [id number] azithromycin OPERATIVE FINDINGS: Liveborn male infant, Apgars 9 and 9. Weight 3580gms or 7 lbs. 14 oz. SPECIMENS: None DESCRIPTION OF PROCEDURE: After informed consent was obtained and written consent was reviewed. The patient was brought to the operating room. She was then placed in the supine position with a left lateral tilt. Villanueva catheter was previously placed and to gravity. Patient was then prepped and draped in the normal sterile fashion. A timeout operating room was performed identifying the patient, procedure be performed as well as drug allergies. Anesthesia was tested and deemed to be adequate. Pfannenstiel skin incision was made and this was c arried down to the underlying rectus fascia. The fascia was then scored and this incision was extended bilaterally. The fascia was then dissected off the underlying rectus muscle superiorly and inferiorly. The rectus muscles were then in the midline. The peritoneum is then entered. Vesicouterine peritoneum was then tented and excised and a bladder flap was created. Mobius retractor was then placed. Next, a curvilinear incision was then made in the lower uterine segment. The head was brought to the level of the incision atraumatically and delivered along the shoulders and corpus. The cord was clamped x2. The infant was brought over to the warmer with a good cry. Placenta was drained and delivered grossly intact. The uterus was cleared of all clots and debris and the uterine incision was then closed using 0 Vicryl in a running locking fashion followed by a second layer of 0 Vicryl for imbrication. The abdomen suctioned. Surgical sites reinspected and noted be hemostatic. The retractor was then removed. The anterior peritoneum was then reapproximated with 3-0 Vicryl. The rectus muscles were reapproximated 3-0 Vicryl. The fascia was then closed using 0 Vicryl in a running nonlocking fashion. The subcutaneous tissues was then irrigated and suctioned. Subcutaneous tissue was reapproximated using 3-0 Vicryl. Several subdermal stitch is placed using 3-0 Vicryl and the skin was closed with 4-0 Monocryl and subcuticular fashion. This incision was then cleaned and dried and was dressed. The patient was then taken to recovery in stable condition. All counts were correct. YARY CAMARILLO MD. Jul 22, 2020 11:32
[2020-07-22] MEDS ORDERED: NALBUPHINE HCL 10 MG/ML AMP (J2300) IV PRN (12:00)
[2020-07-22] MEDS ORDERED: NALOXONE INJ 0.4MG/1ML VIAL (J2310 PER 1MG) IV PRN ×2 (12:00)
[2020-07-22] MEDS ORDERED: fentaNYL 100 MCG/2 ML INJECTION (J3010) IV PRN (12:00)
[2020-07-22] MEDS ORDERED: diphenhydrAMINE 50MG/ML VIAL (J1200) IV PRN (12:00)
[2020-07-22] MEDS ORDERED: LR 1,000 ML IV SCH (12:00)
[2020-07-22] MEDS ORDERED: METOCLOPRAMIDE INJ 10MG/2ML VIAL (J2765 PER 1) IV PRN ×2 (12:00)
[2020-07-22] MEDS: KETOROLAC 30 MG/ML 1ML VIAL IV SCH ×2 (16:57→22:01)
[2020-07-22] MEDS: DOCUSATE SODIUM 100MG CAPSULE PO SCH (22:01)
[2020-07-23] MEDS: LR 1,000 ML IV SCH ×2 (00:33→07:39)
[2020-07-23 02:00] VITALS: BP 128/64
[2020-07-23] MEDS: KETOROLAC 30 MG/ML 1ML VIAL IV SCH (04:36)
[2020-07-23 06:00] VITALS: BP 111/63
[2020-07-23] MEDS: DOCUSATE SODIUM 100MG CAPSULE PO SCH ×2 (07:38→19:37)
[2020-07-23] MEDS: PRENATAL VITAMINS CHEWABLE TABLET PO SCH (07:39)
[2020-07-23] MEDS: FERROUS SULFATE 325MG TAB PO SCH (07:39)
[2020-07-23] MEDS ORDERED: IBUP80TA PO (08:12)
[2020-07-23] MEDS ORDERED: PERCOCET PO (08:12)
[2020-07-23 08:22] LABS: HEMATOCRIT 30.8 % (36.0-47.0); HEMOGLOBIN 9.9 g/dl (12.0-15.5); MEAN CORPUSCULAR HEMOGLOBIN 28.8 pg (27.0-33.0); MEAN CORPUSCULAR HGB CONC 32.1 g/dl (32.0-36.5); MEAN CORPUSCULAR VOLUME 89.5 fl (80.0-96.0); PLATELET COUNT, AUTOMATED 213 10^3/uL (150-450); RED BLOOD COUNT 3.44 10^6/uL (4.00-5.40); WHITE BLOOD COUNT 11.9 10^3/uL (4.0-10.0)
[2020-07-23 10:00] VITALS: BP 109/64
[2020-07-23] MEDS: IBUPROFEN 800 MG TAB PO SCH ×2 (12:34→19:37)
[2020-07-23 14:00] VITALS: BP 119/72
[2020-07-23 18:07] VITALS: BP 110/68
[2020-07-23 22:00] VITALS: BP 114/69
[2020-07-24 02:00] VITALS: BP 110/68
[2020-07-24] MEDS: IBUPROFEN 800 MG TAB PO SCH ×2 (03:39→12:03)
[2020-07-24 06:00] VITALS: BP 119/74
--- NOTE | 2020-07-24 07:46 | DS.PDOC ---
Discharge Summary General Date of Admission Jul 20, 2020 at 22:08 Date of Discharge 07/24/2020 Discharge Summary PROCEDURES PERFORMED DURING STAY: Primary section ADMITTING DIAGNOSES: 1. Spontaneous rupture of membranes at term 2. Meconium stained fluid 3. Early labor DISCHARGE DIAGNOSES: 1. Arrest of dilation 2. Primary section COMPLICATIONS/CHIEF COMPLAINT: ?ROM. HISTORY OF PRESENT ILLNESS: 29yo admitted 07/20/2020 with reports of spontaneous loss of fluid. She received pitocin augmentation of labor and utilized an epidural. performed 07/[address] Camarillo for arrest of dilation HOSPITAL COURSE: Adequate pain management. Tolerating regular diet. Voiding, passing stool and flatus DISCHARGE MEDICATIONS: Please see below. ALLERGIES: Please see below. PHYSICAL EXAMINATION ON DISCHARGE: VITAL SIGNS: Please see below. GENERAL: Alert, no distress HEENT: WNL NECK: Supple CARDIOVASCULAR EXAMINATION: HRR, normotensive RESPIRATORY EXAMINATION: Clear and unlabored ABDOMINAL EXAMINATION: Fundus firm, dressing dry and intact EXTREMITIES: Equal strength and motion SKIN: Intact NEUROLOGICAL EXAMINATION: Grossly intact PSYCHIATRIC EXAMINATION: Appropriate LABORATORY DATA: Please see below. PROGNOSIS: Good ACTIVITY: As tolerated, pelvic rest DIET: As tolerated DISCHARGE PLAN: Home today. Routine precautions DISPOSITION: Home DISCHARGE INSTRUCTIONS: 1. Pelvic rest. Continue vitamins. Pain management as prescribed. Call with fever, nausea, vomiting, chills, foul lochia, wound exudate. Remove dressing day five. Return to office 2wks and 6 wks DISCHARGE CONDITION: Stable TIME SPENT ON DISCHARGE: Greater than 10 minutes. Vital Signs/I&Os Vital Signs Date Time Temp Pulse Resp B/P (MAP) Pulse Ox O2 Delivery O2 Flow Rate FiO2 07/24/20 06:00 97.3 66 16 119/74 (89) 96 Room Air I&O- Last 24 Hours up to 6 AM 07/24/20 06:00 Intake Total 250 ml Output Total 800 ml Balance -550 ml Laboratory Data Labs 24H Laboratory Tests 2 07/23/20 07:43: Nucleated Red Blood Cells % (auto) 0.0 CBC/BMP Laboratory Tests 07/23/20 07:43 Discharge Medications Scheduled Aspirin (Aspirin) 81 Mg Tab.chew, 1 TAB PO QHS for pain, (Reported) Ibuprofen (Ibuprofen) 800 Mg Tablet, 800 MG PO Q8H Omeprazole (Omeprazole) 40 Mg Cap, 40 MG PO DAILY, (Reported) No.137/Iron/Folic Acd ( Vitamin Tablet) 1 Each Tablet, 1 TAB PO DAILY, (Reported) Sucralfate (Carafate) 1 Gm Tab, 1 GM PO ACHS 4 times per day on an empty stomach 1 hour before meals and at bedtime Scheduled PRN Oxycodone/Acetaminophen (Oxycodone-Acetaminophen 5-325) 1 Tab Tab, 1-2 TAB PO Q4-6HP PRN for PAIN Allergies Coded Allergies: No Known Drug Allergies (Verified Allergy, Unknown, 07/20/20) Iliana Delong CNM Jul 24, 2020 07:46
[2020-07-24] MEDS: FERROUS SULFATE 325MG TAB PO SCH (08:46)
[2020-07-24] MEDS: PRENATAL VITAMINS CHEWABLE TABLET PO SCH (08:46)
[2020-07-24] MEDS: DOCUSATE SODIUM 100MG CAPSULE PO SCH (08:47)
[2020-07-24 10:00] VITALS: BP 134/80
== END 2020-07-24 12:07 | disposition home or self-care (01) | DRG 540 ==
LOC: M LDO 21:21 → M LDI 22:08 → M OBS 07-22 13:08
PROVIDERS: ADMIT Specialist; ATTEND Obstetrics & Gynecology
PROC: 10D00Z1 Extraction of Products of Conception, Low, Open Approach (ICD-10-PCS; principal; 2020-07-22 09:50)
DX: O48.0 Post-term pregnancy (principal); Z3A.40 40 weeks gestation of pregnancy; O62.0 Primary inadequate contractions; O77.0 Labor and delivery complicated by meconium in amniotic fluid; Z37.0 Single live birth

== ENCOUNTER → 2021-04-14 | Outpatient (REF) ==
[~2021-04-14] MED LIST changes: +ASPI81CH33 PO; +IBUP80TA PO; +OMEP40CA4 PO; -OMEP40CA97 PO; +PRENTAB9 PO
== END ==
LOC: M LABSMTC 09:41
PROVIDERS: ATTEND Family Medicine
DX: Z11.52 Encounter for screening for COVID-19 (principal)

== ENCOUNTER → 2021-06-01 | Outpatient (CLI) | payer OTHER ==
[2021-06-01 14:06] LABS: BASO # 0.1 10^3/uL (0.0-0.2); BASO % 0.8 % (0.0-1.0); EOS # 0.2 10^3/uL (0.0-0.5); EOS % 2.2 % (0.0-3.0); HEMATOCRIT 40.7 % (36.0-47.0); HEMOGLOBIN 13.3 g/dl (12.0-15.5); LYMPH # 2.4 10^3/uL (1.5-5.0); LYMPH % 31.6 % (24.0-44.0); MEAN CORPUSCULAR HEMOGLOBIN 29.5 pg (27.0-33.0); MEAN CORPUSCULAR HGB CONC 32.7 g/dl (32.0-36.5); MEAN CORPUSCULAR VOLUME 90.2 fl (80.0-96.0); MONO # 0.8 10^3/uL (0.0-0.8); MONO % 10.3 % (2.0-8.0); NEUTROPHILS # 4.1 10^3/uL (1.5-8.5); NEUTROPHILS % 54.8 % (36.0-66.0); PLATELET COUNT, AUTOMATED 317 10^3/uL (150-450); RED BLOOD COUNT 4.51 10^6/uL (4.00-5.40); WHITE BLOOD COUNT 7.6 10^3/uL (4.0-10.0)
[2021-06-01 14:38] LABS: ALBUMIN 3.8 GM/DL (3.2-5.2); ALT/SGPT 27 U/L (12-78); BILIRUBIN,TOTAL 0.3 MG/DL (0.2-1.0); BLOOD UREA NITROGEN 14 MG/DL (7-18); CALCIUM LEVEL 9.4 MG/DL (8.5-10.1); CARBON DIOXIDE LEVEL 30 MEQ/L (21-32); CHLORIDE LEVEL 106 MEQ/L (98-107); CREATININE FOR GFR 0.84 MG/DL (0.55-1.30); FREE T4 0.95 NG/DL (0.76-1.46); GLOMERULAR FILTRATION RATE > 60.0 (>60); GLUCOSE, FASTING 89 MG/DL (70-100); IRON (FE) 86 UG/DL (50-170); PERCENT SATURATION 26.4 % (13.2-45.0); POTASSIUM SERUM 4.3 MEQ/L (3.5-5.1); SODIUM LEVEL 142 MEQ/L (136-145); TOTAL IRON BINDING CAPACITY 326 UG/DL (250-450); TOTAL PROTEIN 7.1 GM/DL (6.4-8.2)
[2021-06-01 14:39] LABS: TOTAL 25(OH) VITAMIN D 29.9 NG/ML (30.0-100.0)
[2021-06-01 14:40] LABS: FOLATE > 24.0 NG/ML; VITAMIN B12 LEVEL 948 PG/ML
== END ==
LOC: M PLALAB 11:14
PROVIDERS: ATTEND Nurse Practitioner Family
DX: Z00.00 Encounter for general adult medical examination without abnormal findings (principal); R42 Dizziness and giddiness; R53.83 Other fatigue; E55.9 Vitamin D deficiency, unspecified

== ENCOUNTER → 2021-11-16 | Outpatient (REF) | payer BC, OTHER | LOC: M SFHCDERM 17:35 | PROVIDERS: ATTEND Nurse Practitioner Family | DX: D23.5 Other benign neoplasm of skin of trunk (principal) ==

== ENCOUNTER → 2021-12-21 | Outpatient (REF) | payer BC | LOC: M PLALAB 11:46 | PROVIDERS: ATTEND Obstetrics & Gynecology | DX: Z01.419 Encounter for gynecological examination (general) (routine) without abnormal findings (principal); Z53.9 Procedure and treatment not carried out, unspecified reason ==

== ENCOUNTER → 2021-12-21 | Outpatient (REF) | payer BC | LOC: M SFHCWAGY 17:18 | PROVIDERS: ATTEND Obstetrics & Gynecology | DX: Z12.4 Encounter for screening for malignant neoplasm of cervix (principal) | CPT/HCPCS: 87624; G0123 ==

== ENCOUNTER → 2021-12-21 | Outpatient (CLI) | payer BC, OTHER | LOC: M PLALAB 09:00 | PROVIDERS: ATTEND Obstetrics & Gynecology | DX: O36.80X0 Pregnancy with inconclusive fetal viability, not applicable or unspecified (principal) ==

== ENCOUNTER → 2021-12-26 | Outpatient (CLI) | payer BC | LOC: M LAB 07:33 | PROVIDERS: ATTEND Advanced Practice Midwife | DX: N91.2 Amenorrhea, unspecified (principal) ==

== ENCOUNTER → 2022-02-01 | Outpatient (CLI) | payer BC ==
[2022-02-01 13:21] LABS: BASO % 0.3 % (0.0-1.0); EOS # 0.2 10^3/uL (0.0-0.5); EOS % 2.2 % (0.0-3.0); HEMATOCRIT 42.1 % (36.0-47.0); HEMOGLOBIN 14.1 g/dl (12.0-15.5); LYMPH # 1.9 10^3/uL (1.5-5.0); MEAN CORPUSCULAR HEMOGLOBIN 29.3 pg (27.0-33.0); MEAN CORPUSCULAR HGB CONC 33.5 g/dl (32.0-36.5); MEAN CORPUSCULAR VOLUME 87.3 fl (80.0-96.0); MONO # 0.7 10^3/uL (0.0-0.8); NEUTROPHILS # 6.4 10^3/uL (1.5-8.5); NEUTROPHILS % 69.2 % (36.0-66.0); PLATELET COUNT, AUTOMATED 350 10^3/uL (150-450); RED BLOOD COUNT 4.82 10^6/uL (4.00-5.40); WHITE BLOOD COUNT 9.3 10^3/uL (4.0-10.0)
[2022-02-01 14:31] LABS: HEPATITIS C VIRUS ABY INDEX 0.1 INDEX (<0.8); HIV 1&2 SCREEN CENTAUR NEGATIVE (NEGATIVE)
[2022-02-01 16:58] LABS: GC DNA AMPLIFICATION NEGATIVE (NEGATIVE)
== END ==
LOC: M PLALAB 11:12
PROVIDERS: ATTEND Obstetrics & Gynecology
DX: Z34.80 Encounter for supervision of other normal pregnancy, unspecified trimester (principal)

== ENCOUNTER → 2022-04-06 | Outpatient (CLI) | payer OTHER | LOC: M RAD 13:17 | PROVIDERS: ATTEND Specialist | DX: Z34.82 Encounter for supervision of other normal pregnancy, second trimester (principal); Z3A.19 19 weeks gestation of pregnancy ==

== ENCOUNTER → 2022-06-05 | Outpatient (CLI) | payer OTHER ==
[2022-06-05 12:30] LABS: HEMATOCRIT 37.2 % (36.0-47.0); HEMOGLOBIN 12.1 g/dl (12.0-15.5); MEAN CORPUSCULAR HEMOGLOBIN 29.6 pg (27.0-33.0); MEAN CORPUSCULAR HGB CONC 32.5 g/dl (32.0-36.5); PLATELET COUNT, AUTOMATED 281 10^3/uL (150-450); RED BLOOD COUNT 4.09 10^6/uL (4.00-5.40); WHITE BLOOD COUNT 10.8 10^3/uL (4.0-10.0)
== END ==
LOC: M LAB 10:32
PROVIDERS: ATTEND Obstetrics & Gynecology
DX: O34.211 Maternal care for low transverse scar from previous cesarean delivery (principal); Z3A.00 Weeks of gestation of pregnancy not specified

== ENCOUNTER → 2022-08-02 | Outpatient (REF) | payer OTHER | LOC: M SFHCWAGY 09:52 | PROVIDERS: ATTEND Obstetrics & Gynecology | DX: Z36.85 Encounter for antenatal screening for Streptococcus B (principal); O34.211 Maternal care for low transverse scar from previous cesarean delivery ==

== ENCOUNTER 2022-08-17 18:48 | Inpatient (IN) | payer OTHER ==
[~2022-08-17] VITALS: Ht 167.6 cm; Wt 106.0 kg
[~2022-08-17 18:48] MED LIST changes: +ECOT81TA5 PO
[2022-08-17 19:05] VITALS: BP 115/68
[2022-08-17] MEDS ORDERED: HOME MED LIST COMPLETE! XX SCH (19:05)
[2022-08-17] MEDS ORDERED: LACTATED RINGER'S 1000 ML IV STA (21:16)
[2022-08-17] MEDS ORDERED: ceFAZolin SOD 2 GM in IV 1 EA IV ONE (21:20)
[2022-08-17] MEDS ORDERED: LR 1,000 ML IV SCH (21:20)
[2022-08-17] MEDS ORDERED: BICITRA 30ML SOLN UDC PO ONE (21:20)
[2022-08-17] MEDS ORDERED: KETOROLAC 60MG 2ML VIAL As Ordered ONE (21:35)
[2022-08-17] MEDS ORDERED: OXYTOCIN 30UNITS IN 0.9% NaCl 500ML IV BAG As Ordered ONE (21:35)
[2022-08-17] MEDS ORDERED: MORPHINE PRES-FREE INJ 10 MG/10 ML VIAL As Ordered ONE (21:35)
[2022-08-17] MEDS ORDERED: ONDANSETRON 4MG 2ML VIAL As Ordered ONE (21:35)
[2022-08-17 22:07] LABS: HEMATOCRIT 38.7 % (36.0-47.0); HEMOGLOBIN 12.9 g/dl (12.0-15.5); MEAN CORPUSCULAR HEMOGLOBIN 29.6 pg (27.0-33.0); MEAN CORPUSCULAR HGB CONC 33.3 g/dl (32.0-36.5); MEAN CORPUSCULAR VOLUME 88.8 fl (80.0-96.0); PLATELET COUNT, AUTOMATED 253 10^3/uL (150-450); RED BLOOD COUNT 4.36 10^6/uL (4.00-5.40)
[2022-08-17 22:14] VITALS: BP 115/59
[2022-08-17] MEDS ORDERED: ePHEDrine SULFATE 25 MG/5 ML(5MG/ML) SYRINGE As Ordered ONE (23:01)
[2022-08-17] MEDS ORDERED: PHENYLephrine 500MCG 5ML (100MCG/ML) SYRINGE As Ordered ONE (23:01)
[2022-08-18] VITALS (10 sets, daily range): BP systolic 91–118; BP diastolic 51–64
[2022-08-18] MEDS ORDERED: SIMETHICONE 80MG CHEW TAB PO PRN (00:35)
[2022-08-18] MEDS ORDERED: RHOGAM 300MCG (1500IU) INJ IM SCH (00:35)
[2022-08-18] MEDS ORDERED: DOCUSATE SODIUM 100MG CAPSULE PO PRN (00:35)
[2022-08-18] MEDS ORDERED: PERCOCET 5MG/325MG TAB PO PRN ×2 (00:35)
[2022-08-18] MEDS ORDERED: OXYTOCIN DRIP 30 UNITS in IV 1 EA IV SCH (00:35)
[2022-08-18] MEDS: LR 1,000 ML IV SCH ×3 (00:35→16:35)
[2022-08-18] MEDS ORDERED: OXYTOCIN 30UNITS IN 0.9% NaCl 500ML IV BAG As Ordered ONE (00:46)
[2022-08-18] MEDS ORDERED: oxyCODONE 5MG TAB PO PRN (01:55)
[2022-08-18] MEDS ORDERED: fentaNYL 100 MCG/2 ML INJECTION IV PRN (01:55)
[2022-08-18] MEDS ORDERED: LR 1,000 ML IV SCH (01:55)
[2022-08-18] MEDS ORDERED: diphenhydrAMINE 50MG/ML VIAL IV PRN (01:55)
[2022-08-18] MEDS ORDERED: **NOTE PATIENT COMMENT** MISC XX SCH (01:55)
[2022-08-18] MEDS ORDERED: METOCLOPRAMIDE INJ 10MG/2ML VIAL IV PRN ×2 (01:55)
[2022-08-18] MEDS ORDERED: NALOXONE INJ 0.4MG/1ML VIAL IV PRN ×2 (01:55)
[2022-08-18] MEDS: SLF 3 ML SYR IV SCH ×3 (02:00→18:00)
[2022-08-18] MEDS ORDERED: ONDANSETRON 4MG 2ML VIAL IV PRN (02:00)
[2022-08-18] MEDS: KETOROLAC 30 MG/ML 1ML VIAL IV SCH ×3 (04:24→16:19)
[2022-08-18] MEDS: PRENATAL VITAMINS CHEWABLE TABLET PO SCH (10:49)
[2022-08-18] MEDS: IBUPROFEN 800 MG TAB PO SCH (23:55)
[2022-08-19] MEDS: LR 1,000 ML IV SCH (00:05)
[2022-08-19 02:00] VITALS: BP 99/54
[2022-08-19 06:00] VITALS: BP 104/65
[2022-08-19 07:15] LABS: HEMATOCRIT 32.9 % (36.0-47.0); MEAN CORPUSCULAR HEMOGLOBIN 29.8 pg (27.0-33.0); MEAN CORPUSCULAR HGB CONC 32.8 g/dl (32.0-36.5); MEAN CORPUSCULAR VOLUME 90.9 fl (80.0-96.0); PLATELET COUNT, AUTOMATED 213 10^3/uL (150-450); RED BLOOD COUNT 3.62 10^6/uL (4.00-5.40)
[2022-08-19 07:17] LABS: HEMOGLOBIN 10.8 g/dl (12.0-15.5)
[2022-08-19] MEDS: IBUPROFEN 800 MG TAB PO SCH ×2 (07:57→15:14)
[2022-08-19] MEDS: PRENATAL VITAMINS CHEWABLE TABLET PO SCH (07:57)
[2022-08-19 10:00] VITALS: BP 112/69
[2022-08-19] MEDS ORDERED: PERCOCET PO (10:37)
[2022-08-19] MEDS ORDERED: IBUP80TA PO (10:37)
[2022-08-20] MEDS ORDERED: MEASLES,MUMPS,RUBELLA VACCINE INJ (MMR-II) SC.IMMUN ONE (09:00)
== END 2022-08-19 15:00 | disposition home or self-care (01) | DRG 540 ==
LOC: M LDO 18:48 → M LDI 21:14 → M OBS 08-18 01:30
PROVIDERS: ADMIT Specialist; ATTEND Specialist
PROC: 10D00Z1 Extraction of Products of Conception, Low, Open Approach (ICD-10-PCS; principal; 2022-08-18)
PROC: 0UL70ZZ Occlusion of Bilateral Fallopian Tubes, Open Approach (ICD-10-PCS; 2022-08-18)
DX: O34.211 Maternal care for low transverse scar from previous cesarean delivery (principal); Z30.2 Encounter for sterilization; Z37.0 Single live birth; Z3A.38 38 weeks gestation of pregnancy

== ENCOUNTER → 2023-08-21 | Outpatient (REF) | LOC: M EMP 07:51 | PROVIDERS: ATTEND Family Medicine | DX: Z11.52 Encounter for screening for COVID-19 (principal) ==

== ENCOUNTER → 2024-04-04 | Outpatient (CLI) | payer OTHER ==
[2024-04-04 10:14] LABS: BASO # 0.1 10^3/uL (0.0-0.2); BASO % 0.9 % (0.0-1.0); EOS # 0.3 10^3/uL (0.0-0.5); EOS % 3.8 % (0.0-3.0); HEMATOCRIT 41.4 % (36.0-47.0); HEMOGLOBIN 13.5 g/dl (12.0-15.5); LYMPH % 29.2 % (24.0-44.0); MEAN CORPUSCULAR HEMOGLOBIN 28.3 pg (27.0-33.0); MEAN CORPUSCULAR HGB CONC 32.6 g/dl (32.0-36.5); MEAN CORPUSCULAR VOLUME 86.8 fl (80.0-96.0); MONO # 0.6 10^3/uL (0.0-0.8); MONO % 8.7 % (2.0-8.0); NEUTROPHILS % 57.1 % (36.0-66.0); PLATELET COUNT, AUTOMATED 350 10^3/uL (150-450); RED BLOOD COUNT 4.77 10^6/uL (4.00-5.40); WHITE BLOOD COUNT 6.9 10^3/uL (4.0-10.0)
[2024-04-04 10:32] LABS: URIC ACID 5.5 MG/DL (3.1-7.8)
[2024-04-04 10:35] LABS: C REACTIVE PROTEIN QUANTITATIV < 0.40 MG/DL (<1.0)
[2024-04-04 10:36] LABS: ALKALINE PHOSPHATASE 76 U/L (46-116); ALT/SGPT 31 U/L (7.0-40); AST/SGOT 16 U/L (<34); BILIRUBIN,TOTAL 0.3 MG/DL (0.3-1.2); BLOOD UREA NITROGEN 12 MG/DL (9-23); CALCIUM LEVEL 9.1 MG/DL (8.5-10.1); CARBON DIOXIDE LEVEL 28 MMOL/L (20-31); CHLORIDE LEVEL 108 MMOL/L (98-107); CHOLESTEROL LEVEL 159 MG/DL (<200); CHOLESTEROL RISK RATIO 2.98 (<5); CREATININE FOR GFR 0.83 MG/DL (0.55-1.30); GLOMERULAR FILTRATION RATE > 60.0 (>60); GLUCOSE, FASTING 97 MG/DL (60-100); HDL CHOLESTEROL 53.2 MG/DL (>40); IRON (FE) 49 UG/DL (50-170); LDL CHOLESTEROL 94.6 MG/DL (<100); MAGNESIUM LEVEL 2.1 MG/DL (1.8-2.4); NON-HDL-C 105.8 MG/DL; PERCENT SATURATION 13.4 % (13.2-45.0); POTASSIUM SERUM 4.4 MMOL/L (3.5-5.1); RHEUMATOID FACTOR QUANT < 3.5 IU/ML (<14); SODIUM LEVEL 137 MMOL/L (136-145); TOTAL IRON BINDING CAPACITY 367 UG/DL (250-425); TOTAL PROTEIN 7.3 G/DL (5.7-8.2); TRIGLYCERIDES LEVEL 56 MG/DL (<150)
[2024-04-04 10:38] LABS: FERRITIN 27.7 NG/ML (7.3-270.7); TOTAL 25(OH) VITAMIN D 36.6 NG/ML (20.0-100.0)
[2024-04-04 10:48] LABS: ERYTHROCYTE SEDIMENTATION RATE 18 mm/hr (0-20)
[2024-04-07 11:42] LABS: SSA SJOGRENS A <1.0 NEG AI (<1.0 NEG); SSB SJOGRENS B <1.0 NEG AI (<1.0 NEG)
[2024-04-07 23:42] LABS: CYCLIC CITRULLINATED PEPTIDE < 16 UNITS (<20)
[2024-04-08 16:03] LABS: ANA PATTERN Nuclear, Homogeneous (NEGATIVE); ANA PATTERN 2 Nuclear, Speckled; ANA SCREEN, IFA POSITIVE (NEGATIVE)
== END ==
LOC: M LAB 09:04
PROVIDERS: ATTEND Nurse Practitioner Family
DX: R00.2 Palpitations (principal); H04.123 Dry eye syndrome of bilateral lacrimal glands; M12.9 Arthropathy, unspecified

== ENCOUNTER → 2024-05-01 | Outpatient (REF) | payer OTHER ==
[2024-05-03 13:46] LABS: HPV APTIMA Not Detected (Not Detected)
== END ==
LOC: M PLALAB 15:01
PROVIDERS: ATTEND Obstetrics & Gynecology
DX: Z12.4 Encounter for screening for malignant neoplasm of cervix (principal)
CPT/HCPCS: 87624; G0123

== ENCOUNTER → 2024-09-18 | Outpatient (CLI) | payer OTHER | LOC: M LAB 15:29 | PROVIDERS: ATTEND Physician Assistant Medical | DX: R10.33 Periumbilical pain (principal); R19.7 Diarrhea, unspecified ==

== ENCOUNTER → 2024-09-20 | Outpatient (CLI) | payer OTHER | LOC: M EKG 09:21 | PROVIDERS: ATTEND Nurse Practitioner Family | DX: R00.2 Palpitations (principal) ==

== ENCOUNTER → 2024-10-17 | Outpatient (CLI) | payer OTHER ==
[~2024-10-17] MED LIST changes: +E-Z-GAS II EFFERVESCENT PACKET (SODIUM BICARB./CITRIC ACID/SIMETHICONE) As Ordered ONE; +E-Z-HD 98% w/w 340GM SUSP BTL As Ordered ONE; +E-Z-PAQUE 96% w/w SUSP 176GM BTL As Ordered ONE
== END ==
LOC: M RAD 09:38
PROVIDERS: ATTEND Physician Assistant Medical
DX: R19.7 Diarrhea, unspecified (principal); R10.9 Unspecified abdominal pain

== ENCOUNTER → 2025-07-29 | Outpatient (CLI) | payer OTHER ==
[~2025-07-29] MED LIST changes: -E-Z-GAS II EFFERVESCENT PACKET (SODIUM BICARB./CITRIC ACID/SIMETHICONE) As Ordered ONE; -E-Z-HD 98% w/w 340GM SUSP BTL As Ordered ONE; -E-Z-PAQUE 96% w/w SUSP 176GM BTL As Ordered ONE
== END ==
LOC: M RAD 11:11
PROVIDERS: ATTEND Obstetrics & Gynecology
DX: N93.9 Abnormal uterine and vaginal bleeding, unspecified (principal); N84.0 Polyp of corpus uteri

== ENCOUNTER → 2025-07-29 | Outpatient (CLI) | payer OTHER | LOC: M WHC 08:51 | PROVIDERS: ATTEND Obstetrics & Gynecology | DX: Z53.9 Procedure and treatment not carried out, unspecified reason (principal) ==

== ENCOUNTER → 2025-07-29 | Outpatient (REF) | payer OTHER ==
[2025-07-31 12:37] LABS: HPV APTIMA Not Detected (Not Detected)
== END ==
LOC: M PLALAB 07-28 15:51
PROVIDERS: ATTEND Obstetrics & Gynecology
DX: Z12.4 Encounter for screening for malignant neoplasm of cervix (principal)
CPT/HCPCS: 87624; G0123